=== PATIENT | male | born 1985 ===

== ENCOUNTER 2019-01-12 16:54 | Emergency (ER) | payer SELFPAY ==
[2019-01-12] MEDS ORDERED: Proparacaine 0.5% Opth 15 ML BOT ONE (18:14)
[2019-01-12] MEDS ORDERED: Fluorescein Opthalmic Strip ONE (18:29)
== END 2019-01-12 18:57 ==
LOC: ERS 16:54
DX: H10.9 Unspecified conjunctivitis (principal)
CPT/HCPCS: 99283